=== PATIENT | female | born 2000 | race Caucasian/White ===

== ENCOUNTER 2024-11-01 13:04 | Outpatient (AMB) | payer MEDICARE, SELFPAY ==
--- NOTE | 2024-11-01 13:12 | MHC.PC.OV ---
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 Allergies No Known Allergies Allergy (Verified 11/01/24 13:14) Medication List - Last Reconciled 11/01/24 by Emerald Hameed PA-C norethindrone-e.estradiol-iron 1.5 mg-30 mcg (21)/75 mg (7) ( FE .03/08 (28)) 1 tab PO DAILY Tobacco use date assessed: 11/01/24 Dental Screening Dental Screen Date: 11/01/24 Did you have a dental visit in the last 12 months?: No Did you have a dental problem in the last 6 months where you did not have access to dental care?: No Was dental information given to patient?: Patient has dentist 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 She has a hx of generalized anxiety and NIKI. Psych: She follows with a therapist q 2 weeks x 15 years. No SI/HI. No visual or auditory hallucinations. Did not tolerate zoloft well in the past. In the past she did well with lexapro but has been able to wean off and is doing well. 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 Fam hx: maternal grandmother had breast ca around age of 40, mother had breast at age 45. Mother has brca gene. Pt was tested and negative. Maternal grandfather had prostate ca. Paternal grandfather had esophageal cancer. [facility] Medical History (Updated 11/01/24 @ 13:53 by Emerald Hameed PA-C) Major depression in complete remission Surgical History (Updated 11/01/24 @ 13:16 by Marisol Beck CMA) No pertinent past surgical history Family History (Updated 11/01/24 @ 13:17 by Marisol Beck CMA) Father Alcoholic Mother Breast cancer Maternal Grandmother Breast cancer Other FH: mental illness Substance abuse Social History (Updated 11/01/24 @ 13:16 by Marisol Beck CMA) Housing: Apartment Alcohol intake: current Patient Tobacco Use Status: Never used Tobacco e-Cigarette/Vaping Use: Former Use Frequency of e-Cigarette/Vaping Use: used for 3 years Second Hand Smoke Exposure: No Use of substances other than those prescribed or required for medical reasons: Yes Substance Use Type: Marijuana service: No Current occupational status: employed Current occupation: [employer] Current occupational exposures/hazards: No Cognitive needs: No Hearing needs: No Vision needs: No Questionnaire Thrive Questionnaire Date Thrive assessed: 10/25/24 I am a: Patient What is your living situation today?: I have a steady place to live Within the past 12 months, did the food you bought not last and you didn't have the money to get more?: Never true Within the past 12 months, did you worry whether your food would run out before you got money to buy more?: Never true Do you have trouble paying for medicines?: No Do you have trouble getting transportation to medical appointments?: No Do you have trouble paying your heating and electricity bill?: No Do you have trouble taking care of your child, family member or friend?: No Do you have trouble with day-to-day activities such as bathing, preparing meals, shopping, managing finances, etc.?: No Are you currently unemployed and looking for a job?: Yes Are you interested in more education?: Yes Please select the resources that you would like help with: None Currently or been in a relationship where the following occur: I choose not to answer THRIVE Score: 0 AUDIT C Alcohol Use Questionnaire (AUDIT-C) 1. How often do you have a drink containing alcohol?: 2-4 times a month 2. How many drinks containing alcohol do you have on a typical day when you are drinking?: 3 or 4 3. How often do you have six or more drinks on one occasion?: Less than monthly Total Score: 4 ROCIO-7 AMB Questionnaire ROCIO-7 Date ROCIO - 7 assessed: 11/01/24 Feeling nervous, anxious, or on edge: 1 = Several days Not being able to stop or control worryin = More than half the days Worrying too much about different things: 2 = More than half the days Trouble relaxin = Not at all Being so restless that it is hard to sit still: 0 = Not at all Becoming easily annoyed or irritable: 1 = Several days Feeling afraid as if something awful might happen: 0 = Not at all Total ROCIO-7 score (0-4 normal; 5-9 mild; 10-14 moderate; 15-21 severe): 6 Source: Developed by Drs. Lance Valdez, Frances Abebe, Nigel Delgado and colleagues, with an educational navid from [employer]. ROCIO-7 Assessment Billing ROCIO-7 Assessment Tool: ROCIO-7 Assessment 38229 Physical exam (Primary Care) Vital Signs: Last Vital Signs Pulse 64 11/01/24 13:18 BP 108/82 11/01/24 13:18 Pulse Ox 98 11/01/24 13:18 Oxygen Delivery Method Room Air 11/01/24 13:18 BMI result Body Mass Index 35.2 Tobacco/Smoking Status: Tobacco use Status Tobacco use date assessed 11/01/24 11/01/24 13:21 Patient Tobacco Use Status Never used Tobacco 11/01/24 13:21 e-Cigarette/Vaping Use Former Use 11/01/24 13:21 Thrive Assessment: Date of Thrive Assessment Date Thrive assessed 10/25/24 11/01/24 13:21 Currently or been in a relationship where the following occur: I choose not to answer Const Orientation/consciousness: patient oriented x3 HENMT Ears: hearing grossly normal bilaterally and TM's normal bilaterally General nose exam: No nasal polyps present Face and sinus: Yes sinuses nontender Mouth: Normal oral and palatal mucosa present Eyes Pupils: Equal, round and reactive pupils present EOM: EOMs intact bilaterally Neck Neck: Yes full ROM and Yes no lymphadenopathy Thyroid: Thyroid normal Chest Chest palpation & inspection: normal inspection of the chest Resp Auscultation: clear to auscultation bilaterally Cardio Rate: regular rate Rhythm: regular rhythm Heart sounds: S1 normal heart sound present and S2 normal heart sound present Peripheral pulses: Peripheral pulses 2+ throughout GI Other: Soft, nontender Auscultation: normal bowel sounds Rectal Exam - Female: deferred General: Yes no CVA tenderness Back/Spine/Pelvis Other: Nontender Back: no CVA tenderness Skin General skin exam: no rashes or lesions noted Neuro General: patient oriented x3, gait normal, CN's II-XI intact bilaterally and deep tendon reflexes 2+ bilaterally Cranial nerves: Yes Equal, round and reactive pupils present Motor exam (neuro): 5/5 motor strength present throughout Sensory Exam: double simultaneous stimulation for sensation normal Coordination: arsott-lw-zigo test normal and Romberg test negative Extrem General: Yes normal to inspection and Yes full ROM Psych Affect: normal affect Attitude: cooperative Thought process: Normal thought process present Thought content: Normal thought content present Insight: Good insight present (Psych) Judgement: Good judgement present (Psych) Coding Level of Care Code New Pt Prev Care 18-39yr(08208 Diagnoses Encounter for routine history and physical examination Z00.00 Generalized anxiety disorder F41.1 Additional Codes ROCIO-7 Assessment Billing - ROCIO-7 Assessment Tool: ROCIO-7 Assessment 61759 ([id number]) Assessment & Plan Assessment & Plan (1) Encounter for routine history and physical examination: Code(s): Z00.00 - Encounter for general adult medical examination without abnormal findings Plan: Health maintenance reviewed. Follows with Gynecology, dental and Ophthalmology. Labs ordered today. We will follow up pending test results (2) Generalized anxiety disorder: Code(s): F41.1 - Generalized anxiety disorder Category: Medical Plan: Currently stable. Orders: Orders Complete Blood Count Auto Diff Today Z00.00 - Encounter for general adult medical examination without abnormal findings, Z01.89 - Encounter for other specified special examinations Comprehensive [place]. Panel Fast Today Z00.00 - Encounter for general adult medical examination without abnormal findings, Z01.89 - Encounter for other specified special examinations Lipid Panel Today Z00.00 - Encounter for general adult medical examination without abnormal findings, Z01.89 - Encounter for other specified special examinations TSH reflex Free T4 Today Z00.00 - Encounter for general adult medical examination without abnormal findings, Z01.89 - Encounter for other specified special examinations
[2024-11-01 13:18] VITALS: BP 108/82; PULSE 64; O2SAT 98; BMI 35.2
== END 2024-11-01 13:55 | disposition home or self-care (01) ==
PROVIDERS: PCP Physician Assistant; Visit Provider Physician Assistant
DX: Z00.00 Encounter for general adult medical examination without abnormal findings (principal); F41.1 Generalized anxiety disorder

== ENCOUNTER → 2024-11-01 13:04 | Outpatient (BNVA) | payer MEDICARE, SELFPAY | PROVIDERS: PCP Physician Assistant; Visit Provider Physician Assistant | DX: Z00.00 Encounter for general adult medical examination without abnormal findings (principal); F41.1 Generalized anxiety disorder | CPT/HCPCS: 96127; 99385 ==

== ENCOUNTER 2025-03-19 13:04 | Emergency (ER) | payer MEDICARE, SELFPAY ==
[2025-03-19 13:16] VITALS: BP 151/94; PULSE 96; RESP 16; TEMP 36.6; O2SAT 100; BMI 33.5
--- NOTE | 2025-03-19 13:19 | ED_ITS ---
HPI - General Adult General Chief complaint: Wound/Laceration Stated complaint: Severe Hand Lac History of Present Illness HPI narrative: Patient left before completion of treatment by ED provider. Related Data Home Medications ?Medication ?Instructions ?Recorded ?Confirmed norethindrone 1.5 mg-ethinyl 1 tab PO DAILY 11/01/24 11/01/24 estradiol 30 mcg(21)/iron 75 mg(7) tablet ( FE ()) Allergies Allergy/AdvReac Type Severity Reaction Status Date / Time No Known Allergies Allergy Verified 03/19/25 13:18 [facility] Past Medical History Medical History (Updated 03/20/25 @ 09:04 by FERDINAND Verdugo) Major depression in complete remission Surgical History (Updated 11/01/24 @ 13:16 by Marisol Beck CMA) No pertinent past surgical history Family History Family History (Updated 11/01/24 @ 13:17 by Marisol Beck CMA) Father Alcoholic Mother Breast cancer Maternal Grandmother Breast cancer Other FH: mental illness Substance abuse Social History Social History (Updated 11/01/24 @ 13:16 by Marisol Beck CMA) Housing: Apartment Alcohol intake: current Patient Tobacco Use Status: Never used Tobacco e-Cigarette/Vaping Use: Former Use Second Hand Smoke Exposure: No Substance Use Type: Marijuana Advance Directives: No Advance Directives Information Provided: No service: No Current occupational status: employed Current occupation: [employer] Current occupational exposures/hazards: No Cognitive needs: No Hearing needs: No Vision needs: No Physical Exam ED Vital Signs: Vital Signs - 24 hr 03/19/25 13:16 Temperature 98 F Pulse Rate 96 Respiratory Rate 16 Blood Pressure 151/94 H Pulse Oximetry 100 Oxygen Delivery Method Room Air BMI result Body Mass Index 33.5 Course Course Course Narrative: RME: 24 yold female presents to the ED for right thumb laceration caused by cleaning dishes. Patient bleeding controlled. Patent up to date with tdap. new dressing placed on laceration and will need laceration repari Discharge Plan Discharge Clinical Impression: Laceration Patient Disposition: Left W/O Completing Treatment Prescriptions: No Action norethindrone-e.estradiol-iron [ FE (28)] 1.5 mg-30 mcg (21)/75 mg (7) tablet 1 tab PO DAILY Discharge Date/Time: 03/19/25 15:24
== END 2025-03-19 15:24 | disposition left against medical advice (07) ==
PROVIDERS: Emergency Provider Emergency Medicine Emergency Medical Services; PCP Physician Assistant
DX: S61.011A Laceration without foreign body of right thumb without damage to nail, initial encounter (principal); X58.XXXA Exposure to other specified factors, initial encounter; Y93.9 Activity, unspecified; Y92.9 Unspecified place or not applicable; Y99.8 Other external cause status; Z79.899 Other long term (current) drug therapy
CPT/HCPCS: 99281

== ENCOUNTER 2025-04-04 08:30 | Outpatient (AMB) | payer MEDICARE, SELFPAY ==
--- NOTE | 2025-04-04 08:37 | MHC.PC.OV ---
Vital Signs 04/04/25 08:39 BMI Reason not done Patient refused/unable BP 108/80 Blood Pressure Location Lt brachial Position Sitting Respiration 12 Pulse 86 Pulse Source Pulse Oximeter Temp 98.2 F Temp Source Oral Pulse Oximetry (%) 98 Oxygen Delivery Method Room Air Intake Visit Reasons: remove stitches Intake Note: Stitch removal right thumb. Had a total of 11 stiches, but 3 fell out. Stitches done 03/19/25. Executive Manager Required: No Allergies No Known Allergies Allergy (Verified 04/04/25 08:39) Tobacco use date assessed: 04/04/25 Dental Screening Dental Screen Date: 11/01/24 HPI remove stitches HPI Details Pt is a 24 y/o female who presents today for an ER follow up. She has a hx of generalized anxiety and NIKI. She states 2 weeks ago she was washing dishes when she sliced her right thumb on a broken glass shard. She is right-hand dominant. She says that she went to the ER but the wait was too long so then she went to urgent care where she had 12 sutures placed. 4 them fell out prior to today's appointment. She states that it does not seem like there is any infection but she is worried because she can not bend her thumb. She is right-handed. She states that she is not not moving it because of pain but it just feels like she can not. There is some decreased sensation on the anterior aspect of the thumb. Up-to-date on tetanus Psych: She follows with a therapist q 2 weeks x 15 years. No SI/HI. No visual or auditory hallucinations. Did not tolerate zoloft well in the past. In the past she did well with lexapro but has been able to wean off and is doing well. 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 Fam hx: maternal grandmother had breast ca around age of 40, mother had breast at age 45. Mother has brca gene. Pt was tested and negative. Maternal grandfather had prostate ca. Paternal grandfather had esophageal cancer. [facility] Medical History (Updated 04/04/25 @ 09:09 by Emerald Hameed PA-C) Major depression in complete remission Surgical History (Updated 11/01/24 @ 13:16 by Marisol Beck CMA) No pertinent past surgical history Family History (Updated 11/01/24 @ 13:17 by Marisol Beck CMA) Father Alcoholic Mother Breast cancer Maternal Grandmother Breast cancer Other FH: mental illness Substance abuse Social History (Updated 04/04/25 @ 08:47 by Marisol Beck CMA) Housing: Apartment Alcohol intake: current Patient Tobacco Use Status: Never used Tobacco e-Cigarette/Vaping Use: Former Use Second Hand Smoke Exposure: No Substance Use Type: Marijuana service: No Current occupational status: employed Current occupation: [employer] Current occupational exposures/hazards: No Cognitive needs: No Hearing needs: No Vision needs: No Questionnaire PHQ-9 Over the last 2 weeks, how often have you been bothered by any of the following problems? 1. Little interest or pleasure in doing things: not at all 2. Feeling down, depressed, or hopeless: not at all 3. Trouble falling or staying asleep, or sleeping too much: not at all 4. Feeling tired or having little energy: several days 5. Poor appetite or overeating: several days 6. Feeling bad about yourself - or that you are a failure or have let yourself or your family down: not at all 7. Trouble concentrating on things, such as reading the newspaper or watching television: not at all 8. Moving or speaking so slowly that other people could have noticed. Or the opposite - being so fidgety or restless that you have been moving around a lot more than usual: not at all 9. Thoughts that you would be better off or of hurting yourself in some way: not at all Total score: 2 Source: Developed by Drs. Lance Valdez, Frances Abebe, Nigel Delgado and colleagues, with an educational navid from [employer]. Thrive Questionnaire Date Thrive assessed: 04/04/25 I am a: Patient What is your living situation today?: I have a steady place to live Within the past 12 months, did the food you bought not last and you didn't have the money to get more?: Never true Within the past 12 months, did you worry whether your food would run out before you got money to buy more?: Never true Do you have trouble paying for medicines?: No Do you have trouble getting transportation to medical appointments?: No Do you have trouble paying your heating and electricity bill?: No Do you have trouble taking care of your child, family member or friend?: No Do you have trouble with day-to-day activities such as bathing, preparing meals, shopping, managing finances, etc.?: No Are you currently unemployed and looking for a job?: Yes Are you interested in more education?: Yes Please select the resources that you would like help with: None Currently or been in a relationship where the following occur: I choose not to answer THRIVE Score: 0 AUDIT C Alcohol Use Questionnaire (AUDIT-C) 1. How often do you have a drink containing alcohol?: 2-4 times a month 2. How many drinks containing alcohol do you have on a typical day when you are drinking?: 3 or 4 3. How often do you have six or more drinks on one occasion?: Never Total Score: 3 ROCIO-7 AMB Questionnaire ROCIO-7 Date ROCIO - 7 assessed: 11/01/24 Source: Developed by Drs. Lance Valdez, Frances Abebe, Nigel Delgado and colleagues, with an educational navid from [employer]. Physical exam (Primary Care) Vital Signs: Last Vital Signs Temp 98.2 F 04/04/25 08:39 Pulse 86 04/04/25 08:39 Resp 12 04/04/25 08:39 BP 108/80 04/04/25 08:39 Pulse Ox 98 04/04/25 08:39 Oxygen Delivery Method Room Air 04/04/25 08:39 Tobacco/Smoking Status: Tobacco use Status Tobacco use date assessed 04/04/25 04/04/25 08:44 Patient Tobacco Use Status Never used Tobacco 04/04/25 08:47 e-Cigarette/Vaping Use Former Use 04/04/25 08:47 PHQ-9: PHQ-9 Score PHQ-9: Total score 2 04/04/25 11:11 Thrive Assessment: Date of Thrive Assessment Date Thrive assessed 04/04/25 04/04/25 08:47 Currently or been in a relationship where the following occur: I choose not to answer Const Orientation/consciousness: patient oriented x3 HENMT Ears: hearing grossly normal bilaterally Neck Thyroid: Thyroid normal Lymphatic: no lymphadenopathy noted Resp Auscultation: clear to auscultation bilaterally Cardio Rate: regular rate Rhythm: regular rhythm Heart sounds: S1 normal heart sound present and S2 normal heart sound present Skin Other: Eight sutures noted along a slightly irregular laceration on the dorsum of the right thumb. No surrounding erythema. Sutures were removed without complication. No bleeding. Good capillary refill. Sensation intact but diminished on the anterior aspect of the right thumb. Unable to flex the thumb. Neuro General: patient oriented x3, gait normal and no focal motor deficits Coding Level of Care Code Est Pt Level 4 (70190) Diagnoses Injury of right thumb S69.91XA Laceration of right thumb S61.011A Assessment & Plan Assessment & Plan (1) Injury of right thumb: Code(s): S69.91XA - Unspecified injury of right wrist, hand and finger(s), initial encounter Category: Medical Plan: Referral to hand surgery. Imaging ordered. Follow up if anything worsens or changes. (2) Laceration of right thumb: Code(s): S61.011A - Laceration without foreign body of right thumb without damage to nail, initial encounter Category: Medical Plan: Uncomplicated suture removal. Orders: Orders XR finger RT min 2V 04/04/25 S61.011A - Laceration without foreign body of right thumb without damage to nail, initial encounter, S69.91XA - Unspecified injury of right wrist, hand and finger(s), initial encounter Referrals Hand Surgery Referral S61.011A - Laceration without foreign body of right thumb without damage to nail, initial encounter, S69.91XA - Unspecified injury of right wrist, hand and finger(s), initial encounter
[2025-04-04 08:39] VITALS: BP 108/80; PULSE 86; RESP 12; TEMP 36.8; O2SAT 98
== END 2025-04-04 10:42 | disposition home or self-care (01) ==
LOC: HO.HMCFM 08:30
PROVIDERS: PCP Physician Assistant; Visit Provider Physician Assistant
DX: S69.91XA Unspecified injury of right wrist, hand and finger(s), initial encounter (principal); S61.011A Laceration without foreign body of right thumb without damage to nail, initial encounter

== ENCOUNTER → 2025-04-04 08:30 | Outpatient (BNVA) | payer MEDICARE, SELFPAY | PROVIDERS: PCP Physician Assistant; Visit Provider Physician Assistant | DX: S61.011D Laceration without foreign body of right thumb without damage to nail, subsequent encounter (principal); W26.8XXD Contact with other sharp object(s), not elsewhere classified, subsequent encounter | CPT/HCPCS: 96127; 99212 ==

== ENCOUNTER 2025-04-09 11:27 | Outpatient (AMB) | payer MEDICARE, SELFPAY ==
--- NOTE | 2025-04-09 11:31 | MHC.OFFVIS ---
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 Per [facility] note patient was washing dishes when she cut her hand. Patient left before completion of treatment by ED provider. States she was initially seen at a urgent care where she received sutures. She was advise to follow up with PCP for removal of sutures. Currently states she has no pain, numbness around wound, and limited ROM with her thumb. 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 Per [facility] note patient was washing dishes when she cut her hand. Patient left before completion of treatment by ED provider. States she was initially seen at a urgent care where she received sutures. She was advise to follow up with PCP for removal of sutures. Currently states she has no pain, numbness around wound, and limited ROM with her thumb. [facility] Medical History (Updated 04/04/25 @ 09:09 by Emerald Hameed PA-C) Major depression in complete remission Surgical History No pertinent past surgical history Family History (Updated 11/01/24 @ 13:17 by Marisol Beck CMA) Father Alcoholic Mother Breast cancer Maternal Grandmother Breast cancer Other FH: mental illness Substance abuse Social History (Updated 04/09/25 @ 11:39 by DANIEL Araujo) Housing: Apartment Alcohol intake: current Patient Tobacco Use Status: Never used Tobacco e-Cigarette/Vaping Use: Former Use Second Hand Smoke Exposure: No Substance Use Type: Marijuana service: No Current occupational status: employed 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 Neuro: Diminished sensation around laceration noted at level of MCP joint of right thumb Normal sensation of the tips of all digits of the right hand at this time Vascular: Cap refill brisk Pain: No tenderness to palpation about laceration site Discomfort along the dorsal thumb with flexion ROM: Patient has limited flexion capability of the right thumb Extension full and intact Patient is able to be passively flexed beyond Range of active flexion, but reports significant discomfort when doing so Skin: Well approximated and well healed complex laceration noted of the dorsal aspect of the right thumb at the level of the MCP joint General: No ecchymosis, erythema, or evidence of infection. Psych: Appears grossly normal Affect normal Attitude cooperative Assessment & Plan Assessment & Plan (1) Laceration of right thumb: Code(s): S61.011A - Laceration without foreign body of right thumb without damage to nail, initial encounter Category: Medical Plan 1. Laceration of right thumb with associated numbness Date of injury 03/19/2025 Patient is educated about this injury Patient is educated about the typical treatment course At this time, patient is referred to OT for range of motion and strengthening of the right hand with focus on the thumb for stiffness Patient is educated that she does have some limited flexion capability, and the laceration does not involve the volar aspect of the thumb whatsoever, so an flexor tendon laceration or injury is incredibly unlikely Patient expresses understanding of this and is amenable to this plan Patient is educated that sensation is not likely to return to normal if it has not improved at all at this time Patient is also amenable to this Follow-up as needed Orders: Orders OT Evaluation and Treatment Today S61.011A - Laceration without foreign body of right thumb without damage to nail, initial encounter Coding Level of Care Code New Pt Level 3 (06840) Diagnoses Laceration of right thumb S61.011A
[2025-04-09 11:32] VITALS: BMI 33.5
== END 2025-04-09 11:47 | disposition home or self-care (01) ==
LOC: HO.HOS 11:27
PROVIDERS: PCP Physician Assistant
DX: S61.011A Laceration without foreign body of right thumb without damage to nail, initial encounter (principal)
CPT/HCPCS: 99203

== ENCOUNTER → 2025-04-09 11:27 | Outpatient (BNVA) | payer MEDICARE, SELFPAY | PROVIDERS: PCP Physician Assistant | DX: Z09 Encounter for follow-up examination after completed treatment for conditions other than malignant neoplasm (principal); S61.011A Laceration without foreign body of right thumb without damage to nail, initial encounter | CPT/HCPCS: 99202 ==

== ENCOUNTER 2025-04-15 12:12 | Outpatient (REF) | payer BC, SELFPAY ==
--- NOTE | ~2025-04-15 | XR_ITS ---
EXAMINATION: XR FINGER, RIGHT CLINICAL INFORMATION: S61.011A - Laceration without foreign body of right thumb without damage... COMPARISON: None available. TECHNIQUE: PA hand and oblique and lateral views of the right thumb. FINDINGS: No foreign bodies identified. No fracture or degenerative changes are seen. XR/XR finger RT min 2V IMPRESSION: Unremarkable x-ray Electronically signed by: Ej Vora MD 04/15/2025 12:50 PM EDT
== END 2025-04-15 12:13 | disposition home or self-care (01) ==
LOC: HO.XRAY 12:12
PROVIDERS: PCP Physician Assistant; Visit Provider Physician Assistant
DX: S61.011A Laceration without foreign body of right thumb without damage to nail, initial encounter (principal); S69.91XA Unspecified injury of right wrist, hand and finger(s), initial encounter
CPT/HCPCS: 73140

== ENCOUNTER → 2025-04-15 12:16 | Outpatient (BNV) | payer BC, SELFPAY | PROVIDERS: PCP Physician Assistant; Visit Provider Radiology Diagnostic Radiology | DX: S61.011A Laceration without foreign body of right thumb without damage to nail, initial encounter (principal) | CPT/HCPCS: 73140 ==